=== PATIENT | male | born 1985 | race Caucasian/White ===

== ENCOUNTER 2017-02-16 13:35 | Emergency (ER) | payer OTHER, MEDICAID ==
--- NOTE | 2017-02-16 14:03 | EDPHY ---
H & P Stated Complaint: requests mental daljit eval--not SI, and "physical" for recent cardiac arres Source: Patient - Personal History Current Tetanus/Diphtheria Vaccine: Unsure Current Tetanus Diphtheria and Acellular Pertussis (TDAP): Unsure - Medical/Surgical History Hx Asthma: No Hx Chronic Respiratory Disease: No Hx Diabetes: No Hx Cardiac Disease: Yes Hx Renal Disease: No Hx Cirrhosis: No Hx Alcoholism: No Hx HIV/AIDS: No Hx Splenectomy or Spleen Trauma: No Other PMH: anxiety depression. cardiac arrest 02/05/17 from possible drug od-- seen at [facility] - Social History Smoking Status: Never smoked HPI/ROS: HPI CHIEF COMPLAINT: "I want to mental health evaluation" HISTORY OF PRESENT ILLNESS: This patient very pleasant 31-year-old male, significant past medical history for anxiety chronic back pain and depression, possible Asperger syndrome, presents emergency room with his mom for mental health evaluation. 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 He has a history of depression anxiety and recent hospitalization at [facility]. Possible suicidal ideation. He presents emergency room for voluntary mental health evaluation. Distally mom reports that he had a ?cardiac arrest at [facility]. She is unsure of exactly the details. February 04 I will obtain medical records from there. However for today's ER visit the present requesting mental health evaluation. Patient not suicidal. He is voluntary. Orders mom he was in within hospital on February 04 for various reasons. Mom additionally reports that he has been recently confused more than normal. Past Medical History: Anxiety, depression, chronic back pain. History of abuse of ketamine. Past Surgical History: No recent surgery Social History: Abuse of ketamine, denies current use of drugs alcohol tobacco products. Family History: Noncontributory. ROS REVIEW OF SYSTEMS: A comprehensive 10 point review of systems is otherwise negative aside from elements mentioned in the history of present illness. Exam Constitutional appears well nontoxic, triage nursing summary reviewed, vital signs reviewed, awake/alert. Eyes normal conjunctivae and sclera, EOMI, PERRLA. HENT normal inspection, atraumatic, moist mucus membranes, no epistaxis, neck supple/ no meningismus, no raccoon eyes. Respiratory clear to auscultation bilaterally, normal breath sounds, no respiratory distress, no wheezing. Cardiovascular rate normal, regular rhythm, no murmur, no edema, distal pulses normal. Gastrointestinal soft, non-tender, no rebound, no guarding, normal bowel sounds, no distension, no pulsatile mass. Genitourinary no CVA tenderness. Musculoskeletal no midline vertebral tenderness, full range of motion, no calf swelling, no tenderness of extremities, no meningismus, good pulses, neurovascularly intact. Skin pink, warm, & dry, no rash, skin atraumatic. Neurologic awake, alert and oriented x 3, AAOx3, moves all 4 extremities equally, motor intact, sensory intact, CN II-XII intact, normal cerebellar, normal vision, normal speech. Psychiatric somewhat flat affect. Heme/Lymph/Immune no lymphadenopathy. Differential Diagnosis: Includes but is not limited to in a particular order depression, anxiety, mood disorder, Asperger syndrome, suicidal ideation. Medical Decision Making: Plan for this patient proceed with blood work, mental health evaluation voluntary. CT head. For altered mental status. Recent confusion. Re-evaluation: 153: CT head unremarkable for acute injury no bleed. Blood work has been reviewed. Drug screen positive for marijuana and benzos. [facility] Patient is medically cleared at this time 3:35 p.m. for mental health evaluation. He is voluntary. Denies SI. 1803: Patient has been evaluated by a [facility] with mental health. They do recommend inpatient psychiatric hospitalization. Also recommend an M1 hold for being gravely disabled. 2000: This patient has been placed on M1 hold by mental health. Reason for M1 hold gravely disabled. (Raz Colbert) Constitutional: Initial Vital Signs Temperature (C) 37.0 C 02/16/17 13:43 Heart Rate 87 02/16/17 13:43 Respiratory Rate 16 02/16/17 13:43 Blood Pressure 117/82 H 02/16/17 13:43 O2 Sat (%) 98 02/16/17 13:43 O2 Delivery Mode Room Air Allergies/Adverse Reactions: haloperidol [From Haldol] Allergy (Verified 02/16/17 13:42) penicillin G Allergy (Verified 02/16/17 13:41) Home Medications: Medication Instructions Recorded NK [No Known Home Meds] 02/16/17 Medical Decision Making Other Provider: Care assumed at 7:00 a.m. from Caitlin with plan for inpatient placement. 1358: Accepted at [facility] by Dr. Sanford for inpatient psychiatric hospital but not available at [facility], stable for transfer. (Nigel Manzo) (Late entry) 7:00am - the patient was stable throughout my shift. He had no events overnight. (Katie Tucker) Care Turn Over: I assumed care of this patient from Dr. Colbert at 9 PM on 02/16. He was under my care for two hours, during which time he was stable. Placement being sought. His care will be transferred to Dr. Tucker at 11 PM. (Teresa Gomez) - Data Points Laboratory Results: Laboratory Results 02/16/17 14:28 02/16/17 14:28 Medications Given: Discontinued Medications Nicotine (Nicoderm Cq) 14 mg TD EDNOW ONE Stop: 02/16/17 19:47 Last Admin: 02/16/17 21:08 Dose: 14 mg Nicotine Polacrilex (Nicorette) 2 mg B PRN PRN PRN Reason: Nicotine Withdrawal Stop: 08/15/17 19:45 Last Admin: 02/16/17 20:03 Dose: 2 mg Olanzapine (Zyprexa Zydis) 5 mg PO EDNOW ONE Stop: 02/16/17 19:23 Last Admin: 02/16/17 20:03 Dose: Not Given Departure - Departure Disposition: Other Psych, Not [facility] Clinical Impression: Substance abuse, Acute psychosis Condition: Good Referrals: [facility],PHYSICIANS [Other] - As per Instructions
--- NOTE | 2017-02-16 14:03 | EDPHY ---
H & P Stated Complaint: requests mental daljit eval--not SI, and "physical" for recent cardiac arres Source: Patient - Personal History Current Tetanus/Diphtheria Vaccine: Unsure Current Tetanus Diphtheria and Acellular Pertussis (TDAP): Unsure - Medical/Surgical History Hx Asthma: No Hx Chronic Respiratory Disease: No Hx Diabetes: No Hx Cardiac Disease: Yes Hx Renal Disease: No Hx Cirrhosis: No Hx Alcoholism: No Hx HIV/AIDS: No Hx Splenectomy or Spleen Trauma: No Other PMH: anxiety depression. cardiac arrest 02/05/17 from possible drug od-- seen at [facility] - Social History Smoking Status: Never smoked HPI/ROS: HPI CHIEF COMPLAINT: "I want to mental health evaluation" HISTORY OF PRESENT ILLNESS: This patient very pleasant 31-year-old male, significant past medical history for anxiety chronic back pain and depression, possible Asperger syndrome, presents emergency room with his mom for mental health evaluation. 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 He has a history of depression anxiety and recent hospitalization at [facility]. Possible suicidal ideation. He presents emergency room for voluntary mental health evaluation. Distally mom reports that he had a ?cardiac arrest at [facility]. She is unsure of exactly the details. February 04 I will obtain medical records from there. However for today's ER visit the present requesting mental health evaluation. Patient not suicidal. He is voluntary. Orders mom he was in within hospital on February 04 for various reasons. Mom additionally reports that he has been recently confused more than normal. Past Medical History: Anxiety, depression, chronic back pain. History of abuse of ketamine. Past Surgical History: No recent surgery Social History: Abuse of ketamine, denies current use of drugs alcohol tobacco products. Family History: Noncontributory. ROS REVIEW OF SYSTEMS: A comprehensive 10 point review of systems is otherwise negative aside from elements mentioned in the history of present illness. Exam Constitutional appears well nontoxic, triage nursing summary reviewed, vital signs reviewed, awake/alert. Eyes normal conjunctivae and sclera, EOMI, PERRLA. HENT normal inspection, atraumatic, moist mucus membranes, no epistaxis, neck supple/ no meningismus, no raccoon eyes. Respiratory clear to auscultation bilaterally, normal breath sounds, no respiratory distress, no wheezing. Cardiovascular rate normal, regular rhythm, no murmur, no edema, distal pulses normal. Gastrointestinal soft, non-tender, no rebound, no guarding, normal bowel sounds, no distension, no pulsatile mass. Genitourinary no CVA tenderness. Musculoskeletal no midline vertebral tenderness, full range of motion, no calf swelling, no tenderness of extremities, no meningismus, good pulses, neurovascularly intact. Skin pink, warm, & dry, no rash, skin atraumatic. Neurologic awake, alert and oriented x 3, AAOx3, moves all 4 extremities equally, motor intact, sensory intact, CN II-XII intact, normal cerebellar, normal vision, normal speech. Psychiatric somewhat flat affect. Heme/Lymph/Immune no lymphadenopathy. Differential Diagnosis: Includes but is not limited to in a particular order depression, anxiety, mood disorder, Asperger syndrome, suicidal ideation. Medical Decision Making: Plan for this patient proceed with blood work, mental health evaluation voluntary. CT head. For altered mental status. Recent confusion. Re-evaluation: 153: CT head unremarkable for acute injury no bleed. Blood work has been reviewed. Drug screen positive for marijuana and benzos. [facility] Patient is medically cleared at this time 3:35 p.m. for mental health evaluation. He is voluntary. Denies SI. 1803: Patient has been evaluated by a [facility] with mental health. They do recommend inpatient psychiatric hospitalization. Also recommend an M1 hold for being gravely disabled. 2000: This patient has been placed on M1 hold by mental health. Reason for M1 hold gravely disabled. (Raz Colbert) Constitutional: Initial Vital Signs Temperature (C) 37.0 C 02/16/17 13:43 Heart Rate 87 02/16/17 13:43 Respiratory Rate 16 02/16/17 13:43 Blood Pressure 117/82 H 02/16/17 13:43 O2 Sat (%) 98 02/16/17 13:43 O2 Delivery Mode Room Air Allergies/Adverse Reactions: haloperidol [From Haldol] Allergy (Verified 02/16/17 13:42) penicillin G Allergy (Verified 02/16/17 13:41) Home Medications: Medication Instructions Recorded NK [No Known Home Meds] 02/16/17 Medical Decision Making Other Provider: Care assumed at 7:00 a.m. from Caitlin with plan for inpatient placement. 1358: Accepted at [facility] by Dr. Sanford for inpatient psychiatric hospital but not available at [facility], stable for transfer. (Nigel Manzo) (Late entry) 7:00am - the patient was stable throughout my shift. He had no events overnight. (Katie Tucker) Care Turn Over: I assumed care of this patient from Dr. Colbert at 9 PM on 02/16. He was under my care for two hours, during which time he was stable. Placement being sought. His care will be transferred to Dr. Tucker at 11 PM. (Teresa Gomez) - Data Points Laboratory Results: Laboratory Results 02/16/17 14:28 02/16/17 14:28 Medications Given: Discontinued Medications Nicotine (Nicoderm Cq) 14 mg TD EDNOW ONE Stop: 02/16/17 19:47 Last Admin: 02/16/17 21:08 Dose: 14 mg Nicotine Polacrilex (Nicorette) 2 mg B PRN PRN PRN Reason: Nicotine Withdrawal Stop: 08/15/17 19:45 Last Admin: 02/16/17 20:03 Dose: 2 mg Olanzapine (Zyprexa Zydis) 5 mg PO EDNOW ONE Stop: 02/16/17 19:23 Last Admin: 02/16/17 20:03 Dose: Not Given Departure - Departure Disposition: Other Psych, Not [facility] Clinical Impression: Substance abuse, Acute psychosis Condition: Good Referrals: [facility],PHYSICIANS [Other] - As per Instructions
[2017-02-16 14:33] LABS: PLATELET COUNT 318 10^3/uL (150-400)
--- NOTE | 2017-02-16 15:03 | CPEKG ---
Heart Rate: 76 RR Interval: 789 P-R Interval: 140 QRSD Interval: 92 QT Interval: 356 QTC Interval: 401 P Blackburn: 61 QRS Blackburn: 87 T Wave Blackburn: 36 EKG Severity - NORMAL ECG - EKG Impression: SINUS RHYTHM Electronically Signed By: Katie Tucker 17-Feb-2017 07:00:41
[2017-02-16] MEDS ORDERED: OLANZapine DISINTEGR 5 MG TAB PO ONE (19:22)
[2017-02-16] MEDS ORDERED: NICOTINE 14 MG/24 HR PATCH TD ONE (19:46)
[2017-02-16] MEDS ORDERED: NICOTINE POLACRILEX 2 MG GUM B PRN (19:46)
[2017-02-17 10:16] VITALS: O2SAT 97
[2017-02-17 14:14] VITALS: BP 124/72; PULSE 80; RESP 16; TEMP 98.4
== END 2017-02-17 15:50 ==
LOC: EEVIPCON 13:35
DX: F19.10 Other psychoactive substance abuse, uncomplicated (principal); F29 Unspecified psychosis not due to a substance or known physiological condition
CPT/HCPCS: 80305; G0480